=== PATIENT | male | born 2000 | race African-American/Black ===

== ENCOUNTER 2022-06-23 17:02 | Emergency (ER) | payer MEDICAID ==
[~2022-06-23] VITALS: Ht 188 cm; Wt 73.0 kg
[2022-06-23 17:22] VITALS: BP 130/93
[2022-06-23] MEDS ORDERED: HYDR-2734 TP (18:17)
[2022-06-23] MEDS ORDERED: IBUP-2213 PO (18:17)
[2022-06-23] MEDS ORDERED: HYDR25SU91 RC (18:17)
--- NOTE | 2022-06-23 19:38 | NUR ---
Pt name called in lobby and outside. No response.
--- NOTE | 2022-06-23 19:39 | NUR ---
ATTEMPTED TO CALL PATIENT WITH NO RESPONSE. PATIENT LEFT WITHOUT DC PAPERS
== END 2022-06-23 19:39 | disposition home or self-care (01) ==
LOC: MED 17:02 → EDBD 17:02 → MED 19:39
DX: K64.4 Residual hemorrhoidal skin tags (principal); R03.0 Elevated blood-pressure reading, without diagnosis of hypertension; Z79.899 Other long term (current) drug therapy
CPT/HCPCS: 99283